=== PATIENT | female | born 1980 | race Caucasian/White ===

== ENCOUNTER 2018-02-11 21:41 | Emergency (ER) | payer OTHER ==
[~2018-02-11] VITALS: Ht 177.8 cm; Wt 67.1 kg
--- NOTE | 2018-02-11 23:05 | NUR ---
Dr. Kulkarni at bedside for MSE.
--- NOTE | 2018-02-11 23:25 | NUR ---
Ultrasound at bedside.
--- NOTE | 2018-02-12 00:33 | NUR ---
Patient discharged to home in stable conditon. Written and verbal after care instructions given. Patient verbalizes understanding of instructions. Patient ambulated out of ER with steady gait, no acute signs of distress, VSS, all belongings taken.
[2018-02-12 00:35] VITALS: BP 118/72
== END 2018-02-12 00:35 | disposition home or self-care (01) ==
LOC: ER 21:45
DX: N92.6 Irregular menstruation, unspecified (principal)
CPT/HCPCS: 36415; 76856; 86850; 86900; 86901; A4663